=== PATIENT | female | born 1955 | race Caucasian/White ===

== ENCOUNTER → 2020-04-11 | Outpatient (CLI) | payer OTHER | LOC: LAB 12:02 | PROVIDERS: ATTEND Radiology Diagnostic Radiology | DX: Z01.818 Encounter for other preprocedural examination (principal); Z11.59 Encounter for screening for other viral diseases ==

== ENCOUNTER → 2020-04-16 | Outpatient (CLI) | payer OTHER ==
[~2020-04-16] VITALS: Ht 167.6 cm; Wt 65.8 kg
[2020-04-16 11:16] VITALS: BP 151/77
[2020-04-16 13:43] VITALS: BP 151/77
== END | disposition home or self-care (01) ==
LOC: CAT 10:03
PROVIDERS: ATTEND Radiology Diagnostic Radiology
DX: M71.38 Other bursal cyst, other site (principal)

== ENCOUNTER → 2020-12-14 | Outpatient (CLI) | payer OTHER | LOC: LAB 08:18 | PROVIDERS: ATTEND Anesthesiology | DX: Z01.812 Encounter for preprocedural laboratory examination (principal); Z20.822 Contact with and (suspected) exposure to COVID-19 ==